=== PATIENT | female | born 1950 | race Caucasian/White ===

== ENCOUNTER → 2020-10-08 | Outpatient (CLI) | payer MEDICARE ==
[2020-10-08 11:00] LABS: URINE BILIRUBIN NEGATIVE (Negative); URINE BLOOD NEGATIVE (Negative); URINE CLARITY CLEAR; URINE COLOR YELLOW; URINE GLUCOSE-RANDOM NEGATIVE (Negative); URINE KETONES NEGATIVE (Negative); URINE LEUKOCYTES-REFLEX 1+ (Negative); URINE NITRITE-REFLEX NEGATIVE (Negative); URINE PROTEIN TRACE (Negative); URINE UROBILINOGEN 0.2 E.U./dl (0.2-1.0)
[2020-10-08 11:06] LABS: CASTS None Seen /LPF (None Seen); CRYSTALS None Seen /LPF (None Seen); MUCUS 0-3 Light strn/LPF (None Seen); SQUAMOUS 4-10 Moderate /LPF (0-3); URINE RBC None Seen /HPF (0-2); URINE WBC-REFLEX 0-5 Rare /HPF (0-5)
[2020-10-08 11:11] LABS: ALBUMIN 3.7 g/dL (3.4-5.0); ALKALINE PHOSPHATASE 78 U/L (46-116); ANION GAP 11 mmol/L (7-16); BUN 29 mg/dL (7-18); CALCIUM 8.9 mg/dL (8.5-10.1); CHLORIDE 101 mmol/L (98-107); CHOLESTEROL 138 mg/dL (<200); CO2 27 mmol/L (21-32); GLUCOSE 125 mg/dL (70-99); HDL CHOLESTEROL 44 mg/dL (>40); LDL CHOLESTEROL 73 mg/dL (<100); PHOSPHORUS* 4.1 mg/dL (2.5-4.9); POTASSIUM 4.2 mmol/L (3.5-5.1); SGOT 13 U/L (15-37); SGPT 27 U/L (30-65); SODIUM 139 mmol/L (136-145); TC:HDL 3.1 Ratio (Not establshd); TOTAL BILIRUBIN 0.5 mg/dL (<0.1-1.0); TOTAL PROTEIN 7.5 g/dL (6.4-8.2); TRIGLYCERIDE 107 mg/dL (<150); VLDL 21 mg/dL (<40)
[2020-10-08 11:13] LABS: SERUM ASSESSMENT Clear
[2020-10-09 02:06] LABS: GLYCOHEMOGLOBIN (HGB A1C) 6.5 % (4.8-5.6)
[2020-10-09 15:07] LABS: KAPPA FREE LIGHT CHAINS 15.1 mg/L (3.3-19.4); LAMBDA FREE LIGHT CHAINS 21.3 mg/L (5.7-26.3)
[2020-10-09 16:06] LABS: IgA 80 mg/dL (87-352); IgG 867 mg/dL (586-1602); IgM 92 mg/dL (26-217)
== END ==
LOC: M.LAB 10:24
PROVIDERS: ATTEND Internal Medicine Nephrology
DX: E11.40 Type 2 diabetes mellitus with diabetic neuropathy, unspecified (principal); R80.9 Proteinuria, unspecified; I10 Essential (primary) hypertension

== ENCOUNTER → 2020-12-28 | Outpatient (CLI) | payer MEDICARE | LOC: M.LAB 15:31 | PROVIDERS: ATTEND Orthopaedic Surgery | DX: Z01.812 Encounter for preprocedural laboratory examination (principal); Z20.822 Contact with and (suspected) exposure to COVID-19 ==

== ENCOUNTER → 2020-12-29 | Outpatient (CLI) | payer MEDICARE ==
[2020-12-29 08:32] LABS: POTASSIUM 4.4 mmol/L (3.5-5.1)
== END ==
LOC: M.LAB 05:27
PROVIDERS: ATTEND Anesthesiology
DX: E87.6 Hypokalemia (principal); E11.9 Type 2 diabetes mellitus without complications